=== PATIENT | male | born 1970 | race Caucasian/White ===

== ENCOUNTER 2020-12-08 09:23 | Inpatient (IN) | payer BC ==
[~2020-12-08] VITALS: Ht 180.3 cm; Wt 124.7 kg
[~2020-12-08 09:23] MED LIST: MUCUS RLF DM E1 EACH PO
[2020-12-08 12:02] LABS: RED BLOOD COUNT 4.87 M/UL (4.20-5.50); WHITE BLOOD COUNT 6.2 K/UL (4.5-11.0)
[2020-12-08 12:21] LABS: BUN/CREATININE RATIO 16 (0-10)
[2020-12-08] MEDS ORDERED: VENTOLIN HFA 66.7 GM INH (17:28)
[2020-12-08] MEDS ORDERED: CLONAZEPAM1 MG PO (17:30)
[2020-12-08] MEDS ORDERED: VITAMIN C500 M4 PO (17:30)
[2020-12-08] MEDS ORDERED: MAGNESIUM CITR100 MG PO (17:33)
[2020-12-08] MEDS ORDERED: ZINC50 MG PO (17:54)
[2020-12-09 03:14] LABS: HEMOGLOBIN 12.6 gm/dl (14.0-17.5)
[2020-12-09 03:33] LABS: RED BLOOD COUNT 4.35 M/UL (4.20-5.50)
[2020-12-09 04:04] LABS: BUN/CREATININE RATIO 20 (0-10)
[2020-12-10 10:58] LABS: HEMOGLOBIN 12.6 gm/dl (14.0-17.5); RED BLOOD COUNT 4.29 M/UL (4.20-5.50)
[2020-12-10 11:01] LABS: WHITE BLOOD COUNT 10.8 K/UL (4.5-11.0)
[2020-12-10 11:29] LABS: BUN/CREATININE RATIO 29 (0-10)
[2020-12-11 06:34] LABS: HEMOGLOBIN 12.5 gm/dl (14.0-17.5); RED BLOOD COUNT 4.3 M/UL (4.20-5.50); WHITE BLOOD COUNT 10.7 K/UL (4.5-11.0)
[2020-12-11 07:05] LABS: BUN/CREATININE RATIO 29 (0-10)
--- NOTE | 2020-12-12 04:14 | NUR ---
0230- TELE CALLED THAT PATIENT'S OXYGEN LEVEL HAD DROPPED TO HIGH 70'S. I WENT IN TO ASSESS THE PATIENT AND HE WAS TACHYPNEIC, STATES "I AM SHORT OF BREATH." HE WAS CURRENTLY ON 9L HI FLOW AND I BUMPED HIM UP TO 12L HI FLOW NASAL CANNULA. HIS OXYGEN WAS LOW 80'S. I NOTIFIED RESPIRATORY WHO WAS ON THE FLOOR. I PLACED THE PATIENT ON 100% NONREBREATHER AND PATIENT'S OXYGEN LEVEL CAME UP TO HIGH 80'S LOW 90'S. NOTIFIED DR. ORDOÑEZ ORDERED ABG AND AIRVO. PATIENT WAS PLACED ON AIRVO AND OXYGEN IS CURRENTLY MID 90'S. WILL CONTINUE TO MONITOR THE PATIENT CLOSELY.
[2020-12-12 06:30] LABS: HEMOGLOBIN 12.4 gm/dl (14.0-17.5); RED BLOOD COUNT 4.35 M/UL (4.20-5.50)
[2020-12-12 06:32] LABS: WHITE BLOOD COUNT 7.8 K/UL (4.5-11.0)
[2020-12-12 06:46] LABS: BUN/CREATININE RATIO 34 (0-10)
[2020-12-13 11:43] LABS: HEMOGLOBIN 12.8 gm/dl (14.0-17.5); RED BLOOD COUNT 4.48 M/UL (4.20-5.50)
[2020-12-13 12:22] LABS: BUN/CREATININE RATIO 32 (0-10)
[2020-12-14 07:57] LABS: HEMOGLOBIN 13.1 gm/dl (14.0-17.5); RED BLOOD COUNT 4.59 M/UL (4.20-5.50); WHITE BLOOD COUNT 10.1 K/UL (4.5-11.0)
[2020-12-14 08:32] LABS: BUN/CREATININE RATIO 33 (0-10)
[2020-12-15 10:06] LABS: HEMOGLOBIN 13.9 gm/dl (14.0-17.5); RED BLOOD COUNT 4.84 M/UL (4.20-5.50)
[2020-12-15 10:27] LABS: BUN/CREATININE RATIO 30 (0-10)
[2020-12-16 07:31] LABS: HEMOGLOBIN 13.5 gm/dl (14.0-17.5); RED BLOOD COUNT 4.68 M/UL (4.20-5.50); WHITE BLOOD COUNT 8.5 K/UL (4.5-11.0)
[2020-12-16 07:53] LABS: BUN/CREATININE RATIO 27 (0-10)
[2020-12-17 03:50] LABS: HEMOGLOBIN 13.6 gm/dl (14.0-17.5); RED BLOOD COUNT 4.55 M/UL (4.20-5.50); WHITE BLOOD COUNT 10.4 K/UL (4.5-11.0)
[2020-12-17 04:04] LABS: BUN/CREATININE RATIO 22 (0-10)
[2020-12-18 06:41] LABS: HEMOGLOBIN 13.8 gm/dl (14.0-17.5); RED BLOOD COUNT 4.63 M/UL (4.20-5.50); WHITE BLOOD COUNT 10.1 K/UL (4.5-11.0)
[2020-12-18 07:02] LABS: BUN/CREATININE RATIO 26 (0-10)
[2020-12-19 07:53] LABS: HEMOGLOBIN 14.7 gm/dl (14.0-17.5); RED BLOOD COUNT 4.88 M/UL (4.20-5.50)
[2020-12-19 07:54] LABS: WHITE BLOOD COUNT 13.5 K/UL (4.5-11.0)
[2020-12-19 08:27] LABS: BUN/CREATININE RATIO 33 (0-10)
[2020-12-20 06:42] LABS: HEMOGLOBIN 14.8 gm/dl (14.0-17.5); RED BLOOD COUNT 4.86 M/UL (4.20-5.50); WHITE BLOOD COUNT 13.4 K/UL (4.5-11.0)
[2020-12-20 07:16] LABS: BUN/CREATININE RATIO 36 (0-10)
[2020-12-21 06:36] LABS: HEMOGLOBIN 14.5 gm/dl (14.0-17.5); RED BLOOD COUNT 4.78 M/UL (4.20-5.50); WHITE BLOOD COUNT 10.8 K/UL (4.5-11.0)
[2020-12-21 07:26] LABS: BUN/CREATININE RATIO 38 (0-10)
[2020-12-22 07:05] LABS: HEMOGLOBIN 13.9 gm/dl (14.0-17.5); RED BLOOD COUNT 4.6 M/UL (4.20-5.50); WHITE BLOOD COUNT 9.9 K/UL (4.5-11.0)
[2020-12-22 07:20] LABS: BUN/CREATININE RATIO 35 (0-10)
[2020-12-23 03:47] LABS: HEMOGLOBIN 13.4 gm/dl (14.0-17.5); RED BLOOD COUNT 4.61 M/UL (4.20-5.50); WHITE BLOOD COUNT 11.2 K/UL (4.5-11.0)
[2020-12-23 04:02] LABS: BUN/CREATININE RATIO 30 (0-10)
[2020-12-25 06:55] LABS: HEMOGLOBIN 13.6 gm/dl (14.0-17.5); RED BLOOD COUNT 4.53 M/UL (4.20-5.50); WHITE BLOOD COUNT 11.3 K/UL (4.5-11.0)
[2020-12-25 07:10] LABS: BUN/CREATININE RATIO 36 (0-10)
[2020-12-27 06:38] LABS: HEMOGLOBIN 13.3 gm/dl (14.0-17.5); RED BLOOD COUNT 4.42 M/UL (4.20-5.50); WHITE BLOOD COUNT 11.3 K/UL (4.5-11.0)
[2020-12-27 07:04] LABS: BUN/CREATININE RATIO 42 (0-10)
[2020-12-28 18:44] LABS: HEMOGLOBIN 13.7 gm/dl (14.0-17.5); RED BLOOD COUNT 4.44 M/UL (4.20-5.50); WHITE BLOOD COUNT 13.2 K/UL (4.5-11.0)
[2020-12-28 19:08] LABS: BUN/CREATININE RATIO 37 (0-10)
[2020-12-29 06:33] LABS: RED BLOOD COUNT 4.33 M/UL (4.20-5.50); WHITE BLOOD COUNT 10.8 K/UL (4.5-11.0)
[2020-12-29 07:02] LABS: BUN/CREATININE RATIO 38 (0-10)
--- NOTE | 2020-12-29 14:13 | NUR ---
PER , I ATTEMPTED TO WALK THE PT IN THE HALLWAY ON 6L TO SEE IF PT WAS SAFE TO GO HOME. PT DROPPED TO 81 SOON HE STEPPED OUT OF THE ROOM. WILL TRY AGAIN TOMORROW.
[2020-12-30 05:59] LABS: HEMOGLOBIN 13.1 gm/dl (14.0-17.5); RED BLOOD COUNT 4.38 M/UL (4.20-5.50); WHITE BLOOD COUNT 12.9 K/UL (4.5-11.0)
[2020-12-30 06:24] LABS: BUN/CREATININE RATIO 39 (0-10)
[2020-12-31 07:28] LABS: HEMOGLOBIN 12.8 gm/dl (14.0-17.5); RED BLOOD COUNT 4.26 M/UL (4.20-5.50); WHITE BLOOD COUNT 12.5 K/UL (4.5-11.0)
[2020-12-31 07:53] LABS: BUN/CREATININE RATIO 38 (0-10)
[2021-01-01 09:45] LABS: HEMOGLOBIN 14.1 gm/dl (14.0-17.5); RED BLOOD COUNT 4.65 M/UL (4.20-5.50); WHITE BLOOD COUNT 13.5 K/UL (4.5-11.0)
[2021-01-01 10:02] LABS: BUN/CREATININE RATIO 40 (0-10)
[2021-01-02 13:08] LABS: HEMOGLOBIN 15.7 gm/dl (14.0-17.5); RED BLOOD COUNT 5.05 M/UL (4.20-5.50); WHITE BLOOD COUNT 14.3 K/UL (4.5-11.0)
[2021-01-02 13:31] LABS: BUN/CREATININE RATIO 50 (0-10)
[2021-01-03] MEDS ORDERED: PROTONIX 40 MG40 M1 PO (14:56)
[2021-01-03] MEDS ORDERED: BUDESONIDE0.5 MG/2 M NEB (14:56)
[2021-01-03] MEDS ORDERED: IPRATROPIU0.2 MG/1 M NEB (14:56)
[2021-01-03] MEDS ORDERED: ELIQUIS 5 MG TAB5 MG PO (14:56)
[2021-01-03] MEDS ORDERED: METFORMIN HCL500 MG PO (14:59)
== END 2021-01-03 16:30 | disposition home or self-care (01) | DRG 177 ==
LOC: EDBD 09:23 → ER1 09:23 → MED SURG 4 16:15 → CDU 16:15 → MED SURG 4 12-09 18:16
PROVIDERS: Internal Medicine; Internal Medicine Pulmonary Disease; Nurse Practitioner; ADMIT Internal Medicine
PROC: 8E0ZXY6 Isolation (ICD-10-PCS; principal; 2020-12-08)
PROC: XW033E5 Introduction of Remdesivir Anti-infective into Peripheral Vein, Percutaneous Approach, New Technology Group 5 (ICD-10-PCS; 2020-12-08)
PROC: 3E0333Z Introduction of Anti-inflammatory into Peripheral Vein, Percutaneous Approach (ICD-10-PCS; 2020-12-08)
PROC: B24BZZ4 Ultrasonography of Heart with Aorta, Transesophageal (ICD-10-PCS; 2020-12-20)
DX: U07.1 COVID-19 (principal); J12.82 Pneumonia due to coronavirus disease 2019; J96.01 Acute respiratory failure with hypoxia; I26.93 Single subsegmental thrombotic pulmonary embolism without acute cor pulmonale; E87.2 Acidosis; G47.33 Obstructive sleep apnea (adult) (pediatric); E66.9 Obesity, unspecified; E11.65 Type 2 diabetes mellitus with hyperglycemia; D64.9 Anemia, unspecified; I34.0 Nonrheumatic mitral (valve) insufficiency; R74.01 Elevation of levels of liver transaminase levels; J98.2 Interstitial emphysema; F41.9 Anxiety disorder, unspecified; R53.81 Other malaise; F32.9 Major depressive disorder, single episode, unspecified; E83.52 Hypercalcemia; T38.0X5A Adverse effect of glucocorticoids and synthetic analogues, initial encounter; E83.39 Other disorders of phosphorus metabolism; Z79.4 Long term (current) use of insulin; Z79.01 Long term (current) use of anticoagulants; Z98.890 Other specified postprocedural states; Z88.2 Allergy status to sulfonamides; Z88.8 Allergy status to other drugs, medicaments and biological substances; Z83.3 Family history of diabetes mellitus; Z68.38 Body mass index [BMI] 38.0-38.9, adult
CPT/HCPCS: ECHO; 36415; 36600; 71045; 71275; 80048; 80053; 82550; 82553; 82728; 82803; 82962; 83036; 83605; 83615; 83735; 83880; 84100; 84484; 85025; 85027; 85379; 85384; 85610; 85730; 86140; 87040; 87081; 93306; 93970; 94640; 94660; 94664; 94760; 94761; 97110-GP-CQ; 97116; 97116-GP-CQ; 97161; 97166; 97530-GP-CQ; 97535; 99285; J0456; J0696; J1100; J1650; J1940; J7030; J7040; Q9967; U0002

== ENCOUNTER → 2021-01-12 | Outpatient (CLI) | payer BC ==
[~2021-01-12] MED LIST changes: +BUDESONIDE0.5 MG/2 M NEB; +CLONAZEPAM1 MG PO; +ELIQUIS 5 MG TAB5 MG PO; +IPRATROPIU0.2 MG/1 M NEB; +MAGNESIUM CITR100 MG PO; +METFORMIN HCL500 MG PO; +PROTONIX 40 MG40 M1 PO; +VENTOLIN HFA 66.7 GM INH; +VITAMIN C500 M4 PO; +ZINC50 MG PO
== END ==
LOC: RT 13:08
DX: J84.10 Pulmonary fibrosis, unspecified (principal)
CPT/HCPCS: 36600; 82803

== ENCOUNTER → 2021-01-12 | Outpatient (CLI) | payer BC | LOC: EXRD 10:47 | DX: R06.02 Shortness of breath (principal); J98.4 Other disorders of lung | CPT/HCPCS: 71046 ==

== ENCOUNTER → 2021-02-07 | Outpatient (CLI) | payer BC | LOC: KOH-I 13:38 | DX: J84.10 Pulmonary fibrosis, unspecified (principal); J98.4 Other disorders of lung | CPT/HCPCS: 71250 ==

== ENCOUNTER → 2021-02-21 | Outpatient (CLI) | payer BC, OTHER | LOC: HEART 5 08:49 | DX: J84.10 Pulmonary fibrosis, unspecified (principal) | CPT/HCPCS: 94060; 94729 ==